=== PATIENT | female | born 1960 ===

== ENCOUNTER 2020-12-01 18:19 | Emergency (ER) | payer OTHER ==
[~2020-12-01] VITALS: Ht 162.6 cm; Wt 54.4 kg
[~2020-12-01 18:19] MED LIST: HYDACE5 PO
== END 2020-12-01 19:40 | disposition left against medical advice (07) ==
LOC: ER 18:19
DX: M25.562 Pain in left knee (principal); M25.552 Pain in left hip; Z53.21 Procedure and treatment not carried out due to patient leaving prior to being seen by health care provider
CPT/HCPCS: 99283